=== PATIENT | female | born 1995 | race Caucasian/White ===

== ENCOUNTER → 2023-10-24 13:26 | Outpatient (REF) | payer OTHER, SELFPAY | LOC: PNTC 13:26 | PROVIDERS: ATTENDING PHYSICIAN Obstetrics & Gynecology | DX: Z34.01 Encounter for supervision of normal first pregnancy, first trimester (principal); O36.80X0 Pregnancy with inconclusive fetal viability, not applicable or unspecified; O35.5XX0 Maternal care for (suspected) damage to fetus by drugs, not applicable or unspecified | CPT/HCPCS: 76801 ==

== ENCOUNTER → 2023-11-07 07:27 | Outpatient (REF) | payer OTHER, SELFPAY | LOC: PNTC 07:27 | PROVIDERS: ATTENDING PHYSICIAN Obstetrics & Gynecology | DX: O99.320 Drug use complicating pregnancy, unspecified trimester (principal); O20.8 Other hemorrhage in early pregnancy | CPT/HCPCS: 76801; 76813 ==

== ENCOUNTER → 2023-12-05 10:03 | Outpatient (REF) | payer OTHER, SELFPAY | LOC: PNTC 10:03 | PROVIDERS: ATTENDING PHYSICIAN Obstetrics & Gynecology | DX: Q06.8 Other specified congenital malformations of spinal cord (principal) | CPT/HCPCS: 76805 ==

== ENCOUNTER → 2024-01-02 14:52 | Outpatient (REF) | payer OTHER, SELFPAY | LOC: PNTC 14:52 | PROVIDERS: ATTENDING PHYSICIAN Obstetrics & Gynecology | DX: O99.320 Drug use complicating pregnancy, unspecified trimester (principal); O20.8 Other hemorrhage in early pregnancy | CPT/HCPCS: 76811 ==

== ENCOUNTER 2024-01-15 10:44 | Emergency (ER) | payer OTHER, SELFPAY ==
[2024-01-15 10:57] VITALS: BP 122/85
--- NOTE | 2024-01-15 12:00 | ED.GENMED ---
History of Present Illness
General
Chief Complaint: Cold/Flu/URI Symptoms
Source: patient
Time Seen by Provider: 01/15/24 11:32
History of Present Illness
History of Present Illness:
28-year-old female with past medical history of anxiety and depression, migraines, currently 22 weeks presenting to the emergency department for evaluation of cough and upper respiratory like symptoms that been ongoing for the last 2 days,
initially went to her primary care provider and was given an inhaler to use but states she is not having any relief with this. Tmax of 99.5. Also notes some associated sinus congestion. She did state that during 1 coughing spell she noticed a
small kemal of blood intermixed with the sputum. No known sick contacts, recent travel or recent antibiotics. Patient is denying any pleurisy. Denies any cigarette or tobacco use.
Past History
Past History
ED Past Medical History: Psychiatric and Other (Migraines)
ED Past Surgical History: None
Social History
Tobacco: Non-smoker
Alcohol: None
Drug: None
Personal: Single
Living: with family
Review of Systems
Review of Systems
All Other Systems: ROS reviewed and negative except as documented in HPI and ROS
Phy Exam
Physical Exam
Physical Exam:
GENERAL: Alert , in no apparent distress
EYE: conjunctiva clear
NECK: Supple
ENT: o/p clr, mmm. No tonsillar hypertrophy or exudates, uvula midline, airway patent, no stridor or trismus, TMs clear bilateral
CARDIAC: Borderline tachycardic rate and rhythm, no murmur
LUNGS: Clear breath sounds bilaterally, no acute respiratory distress, no wheezes/rales/rhonchi, Faint dry cough during exam
NEUROLOGICAL: Alert and oriented
SKIN: Warm and dry, skin intact.
MUSCULOSKELETAL: well perfused.
PSYCH: Normal and appropriate interaction.
Scores
Heart Failure Risk
Heart Failure Risk Score: Not Applicable
Heart Score for Chest Pain Patients
STEMI patient?: Not applicable
Withdrawal Assessment of Alcohol
Withdrawal Assessment Completed?: Not applicable
Course
Orders/Labs/Results
Orders:
Orders
01/15/24 11:38
COVID-19 Antigen Urgent
Source: Nasal Swab
INF RAPID [Influenza A+B Rapid Molecular] Urgent
BETHANY Source: Nasal Swab
Specimen Description:
CR Chest - 2 Views Urgent
Comment:
Reason For Exam: cough, low grade fever
Vital Signs
Initial and Last Documented VS:
Initial Vital Signs
Temp Pulse Resp BP Pulse Ox
98.9 F 110 16 122/85 99
01/15/24 10:57 01/15/24 10:57 01/15/24 10:57 01/15/24 10:57 01/15/24 10:57
Last Documented Vital Signs
Temp Pulse Resp BP Pulse Ox
98.9 F 101 14 107/77 96
01/15/24 10:57 01/15/24 13:08 01/15/24 13:08 01/15/24 13:08 01/15/24 13:08
MDM/Problems Addressed
Differential Diagnosis Includes:
COVID, flu, other viral etiology, pneumonia, PE considered given patient's status however given her other URI-like symptoms I feel this is a much less likely diagnosis
MDM/Problems Addressed:
28-year-old female presenting the ER for 2 days of cold and flulike symptoms. PCP gave patient an inhaler but did not do any further testing. Patient noting no relief with the inhaler. She has no wheezing on exam and her lungs are clear.
Discussed risk versus benefit of chest x-ray given patient's and patient is okay with performing the x-ray as long as she is shielded. COVID and flu testing ordered. We also discussed supportive care measures for viral etiologies.
*Radiology
Radiology exam reviewed: radiology read reviewed (Bilateral pneumonia)
*Pulse Oximetry
Patient hypoxic: no
*Railcar Foreman Interpretation
Rate: tachycardiac
Rhythm: sinus
*Critical Care Note
Total Time (30-74mins, 75-104mins- exclusive of procedures): Not Applicable
Patient Management
Escalation/DeEscalation of care consider admission/obs:
Patient's chest x-ray shows bilateral pneumonia. She remains without any evidence for hypoxia. COVID and flu testing negative. Will cover with amoxicillin and Zithromax. Tylenol as needed for fevers and bodyaches. Patient otherwise stable for
discharge home.
ED Attending Note
-
Portions of this chart may have been created with voice recognition software.� Occasional wrong word or��sound alike� substitutions may have occurred due to the inherent limitations of voice recognition software.
Discharge Plan
Departure
Patient Disposition: Home (Routine Discharge)
Date of Disposition: 01/15/24
Time of Disposition: 13:03
Patient with high blood pressure during this ER visit?: No
Discharge Problem:
Pneumonia
Instructions: Pneumonia
Prescriptions:
New
amoxicillin 500 mg tablet
500 mg PO BID 5 Days Qty: 10 0RF
azithromycin [Zithromax] 250 mg tablet
250 mg PO DAILY Qty: 6 0RF
Rx Instructions:
Take 2 tabs PO day 1, Take 1 tab remaining 4 days
Referrals:
Froylan Buckley, DO [Family Provider] -
Interventions
Interventions:
*Risk Screen - Suicide Last Done: 01/15/24 10:57
*General Assessment Last Done: 01/15/24 10:57
*Neglect/Abuse Screening Last Done: 01/15/24 10:57
ED- Fall Risk Assessment Last Done: 01/15/24 11:53
*ED COVID-19 Vaccine History Last Done: 01/15/24 10:57
*Nursing Disposition Last Done: 01/15/24 13:08
ED- Pulmonary Assessment Last Done: 01/15/24 11:53
Discharge Date and Time
Discharge Date/Time: 01/15/24 13:09
Print Language: KITTITIAN
[2024-01-15 12:01] LABS: COVID-19 Antigen Negative (Negative)
[2024-01-15 13:08] VITALS: BP 107/77
== END 2024-01-15 13:09 | disposition home or self-care (01) ==
LOC: EMR 10:44
PROVIDERS: Physician Assistant Medical; EMERGENCY PHYSICIAN Emergency Medicine; FAMILY PHYSICIAN Family Medicine
DX: O99.512 Diseases of the respiratory system complicating pregnancy, second trimester (principal); J18.9 Pneumonia, unspecified organism; Z3A.22 22 weeks gestation of pregnancy
CPT/HCPCS: 99284; 71046; 87502; 87811

== ENCOUNTER 2024-03-07 11:54 | Emergency (ER) | payer OTHER, SELFPAY ==
[2024-03-07 12:02] VITALS: BP 113/76
[2024-03-07 12:19] LABS: % Basophils 0.2 % (0-2); % Eosinophils 0.4 % (0-6); % Immature Granulocytes 2.8 % (0-0.5); % Lymphocytes 18.4 % (20.5-51.1); % Monocytes 4.3 % (1.7-9.3); % Neutrophils 73.9 % (42.2-75.2); Absolute Immature Granulocytes 0.3 10^3/uL (0-0.05); Absolute Lymphocytes 1.7 10^3/uL (1.2-3.4); Absolute Monocytes 0.4 10^3/uL (0.1-0.6); Absolute Neutrophils 6.7 10^3/uL (1.4-6.5); Hematocrit 31.8 % (37.0-47.0); Hemoglobin 10.4 g/dL (12.0-16.0); Mean Corp Hgb Conc. 32.7 g/dL (33.0-37.0); Mean Corpuscular Hgb 26.2 pg (27.0-31.0); Mean Corpuscular Volume 80.1 fL (81.0-99.0); Mean Platelet Volume 9.9 fL (7.4-10.4); Nucleated Red Blood Cells % 0 %; Platelet Count 200 10^3/uL (130-400); Red Blood Cell Count 3.97 10^6/uL (4.20-5.40); Red Cell Dist. Width 13.6 % (11.5-14.5)
[2024-03-07 13:01] LABS: ALT (SGPT) 57 U/L (0-35); AST (SGOT) 51 U/L (14-36); Albumin 3.3 g/dl (3.5-5.0); Alkaline Phosphatase 123 U/L (38-126); Blood Urea Nitrogen 8 mg/dl (7-17); Calcium 8.3 mg/dl (8.4-10.2); Carbon Dioxide 24 mmol/L (22-30); Chloride 103 mmol/L (98-107); Glucose 86 mg/dl (70-99); Lipase 52 U/L (23-300); Potassium 4.5 mmol/L (3.5-5.1); Sodium 135 mmol/L (135-145); Total Bilirubin 0.4 mg/dl (0.2-1.3); Total Protein 6.1 g/dl (6.3-8.2); eGFR > 60.00
--- NOTE | 2024-03-07 15:12 | ED.GENMED ---
History of Present Illness
<Fidelia Boyd PA-C - Last Filed: 03/07/24 21:25>
General
Chief Complaint: Abdominal Symptoms
Source: patient
Exam Limitations: none
Time Seen by Provider: 03/07/24 14:28
Nursing documentation reviewed up to this point in time: agreed with
History of Present Illness
History of Present Illness:
Patient is a 28-year-old G1, P0 at approximately 29 weeks presenting to the emergency department for evaluation of right upper quadrant abdominal pain. Patient reports onset of stabbing right upper quadrant abdominal pain rating down the right side
of her abdomen starting yesterday. Pain is been relatively constant. This morning�patient did picture me nauseous and had 1 episode of vomiting. She then reports she spit up a small amount of blood and had an episode of bright red blood in her
stool. Patient did contact her OFFICE NURSE who recommended evaluation in the emergency department.
Of note�patient has been sick over the past week with influenza. Most of her symptoms have improved. However that she does still have a lingering cough.
Patient denies any chest pain, fevers, anorexia.
has thus far been uncomplicated.
Past History
<Fidelia Boyd PA-C - Last Filed: 03/07/24 21:25>
Past History
ED Past Medical History: Psychiatric and Other (Migraines)
ED Past Surgical History: None
Social History
Tobacco: Non-smoker
Alcohol: None
Drug: None
Personal: Single
Living: with family
Review of Systems
<Fidelia Boyd PA-C - Last Filed: 03/07/24 21:25>
Review of Systems
Allergies reviewed?: Yes
All Other Systems: ROS reviewed and negative except as documented in HPI and ROS
Phy Exam
<Fidelia Boyd PA-C - Last Filed: 03/07/24 21:25>
Physical Exam
Physical Exam:
Vitals: Patient's vital signs are stable. Afebrile
General: Patient is well appearing, no acute distress. Nontoxic appearing
Skin: Warm and dry, no rashes or lesions
Head: Normocephalic, atraumatic
Eyes: Sclera nonicteric. EOMs intact. No nystagmus.
Throat: Protecting airway
Neck: Normal ROM, no cervical spine tenderness, no meningismus
Cardiac: Regular rate and rhythm, no murmurs.
Pulm: Normal respiratory effort, no wheezes, rales, rhonchi heard on exam. O2 saturation 99 on room air.
Abdomen: Gravid. Soft with mild right upper quadrant tenderness. No rebound tenderness or guarding. No tenderness McBurney's point.
Rectal: No visualized external hemorrhoids. No evidence of active bleeding.
Extremities: No evidence of cyanosis or edema. Palpable DP pulses
Neuro: AAOx3. Grossly intact.
Psychiatric: Normal affect.
Course
<Fidelia Boyd PA-C - Last Filed: 03/07/24 21:25>
Orders/Labs/Results
Orders:
Orders
03/07/24 12:10
Complete Blood Count/With Diff Urgent
Comprehensive Metabolic Panel Urgent
Lipase Urgent
03/07/24 15:09
Electrocardiogram (*1) Urgent
Reason for Study: Abdominal Pain
EKG- Treatment ONCE
0.9% Sodium Chloride 1000 ml [Nss] 1,000 ml IV BOLUS
US Abdomen Complete/Upper Urgent
Comment:
Reason For Exam: RUQ pain, +n/+V
03/07/24 15:15
Heart Tones ONCE
03/07/24 16:34
Urinalysis Reflex To Culture Urgent
Date Specimen was Collected: 03/07/24
Time Specimen was Collected: 16:24
Urine Microscopic Reflex Cult Urgent
Urine Culture Urgent
BETHANY Source: U
Specimen Description:
Date Specimen was Collected: 03/07/24
Time Specimen was Collected: 16:24
Abnormal Lab Results
03/07/24 03/07/24
12:10 16:34
RBC 3.97 L 10^6/uL
(4.20-5.40)
Hgb 10.4 L g/dL
(12.0-16.0)
Hct 31.8 L %
(37.0-47.0)
MCV 80.1 L fL
(81.0-99.0)
MCH 26.2 L pg
(27.0-31.0)
MCHC 32.7 L g/dL
(33.0-37.0)
Abs Immat Gran (auto) 0.3 H 10^3/uL
(0-0.05)
Absolute Neuts (auto) 6.7 H 10^3/uL
(1.4-6.5)
Immature Gran % 2.8 H %
(0-0.5)
Lymphocytes % 18.4 L %
(20.5-51.1)
Creatinine 0.5 L mg/dL
(0.6-1.0)
Calcium 8.3 L mg/dl
(8.4-10.2)
AST 51 H U/L
(14-36)
ALT 57 H U/L
(0-35)
Total Protein 6.1 L g/dl
(6.3-8.2)
Albumin 3.3 L g/dl
(3.5-5.0)
Urine Ketones 1+ A
(Negative)
Leukocyte Esterase Rfl 1+ A
(Negative)
Urine WBC (Reflex) 11-15 A /HPF
(0-5)
Urine Bacteria (Reflex) Few A
(Negative)
03/07/24 12:10
03/07/24 12:10
Vital Signs
Initial and Last Documented VS:
Initial Vital Signs
Temp Pulse Resp BP Pulse Ox
98.5 F 85 18 113/76 99
03/07/24 12:02 03/07/24 12:02 03/07/24 12:02 03/07/24 12:02 03/07/24 12:02
Last Documented Vital Signs
Temp Pulse Resp BP Pulse Ox
98.5 F 98 18 110/67 96
03/07/24 12:02 03/07/24 19:43 03/07/24 19:45 03/07/24 19:43 03/07/24 19:43
<Olive Navarro MD - Last Filed: 03/07/24 16:03>
Orders/Labs/Results
Orders:
Orders
03/07/24 12:10
Complete Blood Count/With Diff Urgent
Comprehensive Metabolic Panel Urgent
Lipase Urgent
03/07/24 15:09
Electrocardiogram (*1) Urgent
Reason for Study: Abdominal Pain
EKG- Treatment ONCE
0.9% Sodium Chloride 1000 ml [Nss] 1,000 ml IV BOLUS
US Abdomen Complete/Upper Urgent
Comment:
Reason For Exam: RUQ pain, +n/+V
03/07/24 15:15
Heart Tones ONCE
03/07/24 16:34
Urinalysis Reflex To Culture Urgent
Date Specimen was Collected: 03/07/24
Time Specimen was Collected: 16:24
Urine Microscopic Reflex Cult Urgent
Urine Culture Urgent
BETHANY Source: U
Specimen Description:
Date Specimen was Collected: 03/07/24
Time Specimen was Collected: 16:24
Abnormal Lab Results
03/07/24 03/07/24
12:10 16:34
RBC 3.97 L 10^6/uL
(4.20-5.40)
Hgb 10.4 L g/dL
(12.0-16.0)
Hct 31.8 L %
(37.0-47.0)
MCV 80.1 L fL
(81.0-99.0)
MCH 26.2 L pg
(27.0-31.0)
MCHC 32.7 L g/dL
(33.0-37.0)
Abs Immat Gran (auto) 0.3 H 10^3/uL
(0-0.05)
Absolute Neuts (auto) 6.7 H 10^3/uL
(1.4-6.5)
Immature Gran % 2.8 H %
(0-0.5)
Lymphocytes % 18.4 L %
(20.5-51.1)
Creatinine 0.5 L mg/dL
(0.6-1.0)
Calcium 8.3 L mg/dl
(8.4-10.2)
AST 51 H U/L
(14-36)
ALT 57 H U/L
(0-35)
Total Protein 6.1 L g/dl
(6.3-8.2)
Albumin 3.3 L g/dl
(3.5-5.0)
Urine Ketones 1+ A
(Negative)
Leukocyte Esterase Rfl 1+ A
(Negative)
Urine WBC (Reflex) 11-15 A /HPF
(0-5)
Urine Bacteria (Reflex) Few A
(Negative)
03/07/24 12:10
03/07/24 12:10
Vital Signs
Initial and Last Documented VS:
Initial Vital Signs
Temp Pulse Resp BP Pulse Ox
98.5 F 85 18 113/76 99
03/07/24 12:02 03/07/24 12:02 03/07/24 12:02 03/07/24 12:02 03/07/24 12:02
Last Documented Vital Signs
Temp Pulse Resp BP Pulse Ox
98.5 F 98 18 110/67 96
03/07/24 12:02 03/07/24 19:43 03/07/24 19:45 03/07/24 19:43 03/07/24 19:43
<Fidelia Boyd PA-C - Last Filed: 03/07/24 21:25>
MDM/Problems Addressed
Differential Diagnosis Includes:
Elevated to: Cholelithiasis, cholecystitis, viral illness, etc
MDM/Problems Addressed:
28-year-old female G1, P0 approximately 29 weeks presenting with right upper quadrant abdominal pain after recent influenza. No chest pain or shortness of breath. No vaginal bleeding or loss of fluids. No lower abdominal cramping or anorexia.
Sent by OFFICE NURSE for evaluation. Patient arrives with stable vital signs, she is afebrile. Physical exam as above. Patient overall well-appearing, nontoxic. Very low suspicion for appendicitis given patient is afebrile with no history of anorexia,
no leukocytosis, no point tenderness of right lower quadrant. Labs initiated in triage with mild anemia. Mild elevation in AST and ALT. Given right upper quadrant abdominal pain with mild elevation LFTs�will obtain abdominal ultrasound. Will
check urinalysis. Will discuss with OFFICE NURSE.
Update: Urine appears contaminated with 11-15 WBCs, 1+ leukocyte esterase. No proteinuria. This was discussed with OFFICE NURSE on-call, Dr. Bustillo who recommends against treating at this time given patient is asymptomatic. Plan to hold antibiotics
pending urine culture. Ultrasound reviewed without any acute findings. A polyp was noted on the gallbladder for which patient was made aware of. heart tones obtained by RN document at 170 bpm. NST performed at bedside without any acute
abnormalities. Dr. Watters comfortable with discharge with close OFFICE NURSE follow-up and repeat LFTs in a week. Patient otherwise well-appearing and comfortable with outpatient follow-up. Close return precautions discussed.
Chronic conditions affecting care:
N/A
Acute Exacerbation and/or Progression of Chronic Illness:
N/A
<Fidelia Boyd PA-C - Last Filed: 03/07/24 21:25>
*Radiology
Radiology exam reviewed: radiology read reviewed
*Pulse Oximetry
Patient hypoxic: no
*EKG
Interpreted by ED Provider?: Yes
EKG Intrepretation Date: 03/07/24
Interpretation: normal
Comparison EKG: no comparison EKG present
Heart Rate: 86
Rate: normal
Rhythm: sinus
[place]: normal axis
Interval: normal QT interval
QRS Pattern: normal QRS
Ischemia: non-specific ST changes
*Band Director Interpretation
Rate: Band Director- N/A
*Critical Care Note
Total Time (30-74mins, 75-104mins- exclusive of procedures): Not Applicable
<Fidelia Boyd PA-C - Last Filed: 03/07/24 21:25>
Patient Management
Discussion with other providers: Mechanical Product Engineer (OBGYN - Dr. Watters)
Escalation/DeEscalation of care consider admission/obs:
Discharge with close OBGYN f/u out-patient
ED Attending Note
<Fidelia Boyd PA-C - Last Filed: 03/07/24 21:25>
-
Portions of this chart may have been created with voice recognition software.� Occasional wrong word or��sound alike� substitutions may have occurred due to the inherent limitations of voice recognition software.
<Olive Navarro MD - Last Filed: 03/07/24 16:03>
ED Attending Note
Patient seen and examined by attending physician: Yes
I performed the substantive portion of visit, reviewed & personally made and approve the management plan that is documented in note by myself or MARY ALICE.: Yes
ED Attending Note:
28-year-old female presents emergency department, 29 weeks gestation, with recent diagnosis of the flu characterized by cough, congestion, fatigue, etc. Yesterday she noted the gradual onset of intermittent stabbing discomfort in the right upper
quadrant that is now constant. She did have an episode of vomiting this morning where there was a small amount of blood. She then had a episode of loose stool and she saw some bright red blood without clots. It was a small amount. Patient denies
chest pain, fevers, anorexia. She denies dyspnea. She ate this am. On exam, patient overall well-appearing, gravid, occasional cough, no respiratory distress. Lungs CTA, no tenderness to palpation of chest wall. She has minimal tenderness to
palpation of the right upper quadrant, no right lower quadrant right mid quadrant tenderness, no uterine tenderness. Workup in progress, very low suspicion for appendicitis given lack of fever, anorexia, etc.
Discharge Plan
Departure
Patient Disposition: Home (Routine Discharge)
Date of Disposition: 03/07/24
Time of Disposition: 19:50
Patient with high blood pressure during this ER visit?: No
Covid-19: Not Applicable
Discharge Problem:
Right upper quadrant abdominal pain
Instructions: Abdominal Pain
Prescriptions:
No Action
amoxicillin 500 mg tablet
500 mg PO BID 5 Days Qty: 10 0RF
azithromycin [Zithromax] 250 mg tablet
250 mg PO DAILY Qty: 6 0RF
Rx Instructions:
Take 2 tabs PO day 1, Take 1 tab remaining 4 days
Referrals:
Froylan Buckley, DO [Family Provider] -
Parris Watters DO [Active] - Follow up in 1 week
Activity Restrictions/Additional Instructions:
RETURN TO THE EMERGENCY DEPARTMENT WITH ANY FEVERS, WORSENING/PERSISTENT ABDOMINAL PAIN, PERSISTENT NAUSEA/VOMITING, VAGINAL BLEEDING/LOSS OF FLUID, WORSENING IN CURRENT SYMPTOMS OR ANY OTHER CONCERNS
-As discussed�your abdominal ultrasound did show a small polyp on your gallbladder. You should have this followed up with your primary care as needed.
-Your LFTs were mildly elevated today in the emergency department. You will need to have these rechecked in about 1 week with your OFFICE NURSE/PCP to ensure that they are trending down.
-Your urine was sent for culture. If it is found to be positive�we will contact you to initiate antibiotics.
-It is important stay well-hydrated and get plenty of rest.
-Follow-up with your OFFICE NURSE as scheduled for further evaluation/management and care
Monitor your symptoms closely and return to the emergency department w/ any acute worsening/new symptoms or any other concerns
Interventions
Interventions:
*Risk Screen - Suicide Last Done: 03/07/24 12:02
*General Assessment Last Done: 03/07/24 12:02
*Neglect/Abuse Screening Last Done: 03/07/24 12:02
ED- Fall Risk Assessment Last Done: 03/07/24 20:07
*ED COVID-19 Vaccine History Last Done: 03/07/24 12:02
*Nursing Disposition Last Done: 03/07/24 20:07
WK-Vfcdeq-Lsvyxumigx Assessment Last Done: 03/07/24 15:26
Discharge Date and Time
Discharge Date/Time: 03/07/24 20:00
Print Language: LITHUANIAN
[2024-03-07] MEDS: NSS 1000 IV (15:27)
[2024-03-07 16:46] LABS: Urine Albumin Trace (Neg - Trace); Urine Bilirubin Negative (Negative); Urine Character Clear (Clear); Urine Color Yellow; Urine Glucose Negative (Negative); Urine Ketone 1+ (Negative); Urine Leukocyte 1+ (Negative); Urine Nitrite Negative (Negative); Urine Occult Blood Negative (Negative); Urine Urobilinogen Negative (Neg - 1+)
[2024-03-07 17:21] LABS: Urine Squamous Cell >30 /LPF (Few)
[2024-03-07 17:22] LABS: Urine Bacteria Few (Negative); Urine Red Blood Cell 0-2 /HPF (0-2)
[2024-03-07 19:43] VITALS: BP 110/67
== END 2024-03-07 20:00 | disposition home or self-care (01) ==
LOC: EMR 11:54
PROVIDERS: Physician Assistant; Student in an Organized Health Care Education/Training Program; EMERGENCY PHYSICIAN Emergency Medicine; FAMILY PHYSICIAN Family Medicine
DX: O26.893 Other specified pregnancy related conditions, third trimester (principal); R10.11 Right upper quadrant pain; O99.013 Anemia complicating pregnancy, third trimester; Z3A.29 29 weeks gestation of pregnancy
CPT/HCPCS: 96360; 99284; 76700; 80053; 81003; 81015; 83690; 85025; 87086; 93005

== ENCOUNTER 2024-03-17 15:33 | Observation (INO) | payer OTHER, SELFPAY ==
[2024-03-17 15:46] VITALS: BP 125/78; BMI 25.6
[2024-03-17 16:11] LABS: % Basophils 0.5 % (0-2); % Eosinophils 1.4 % (0-6); % Immature Granulocytes 1.4 % (0-0.5); % Lymphocytes 23.1 % (20.5-51.1); % Monocytes 7.1 % (1.7-9.3); % Neutrophils 66.5 % (42.2-75.2); Absolute Eosinophils 0.1 10^3/uL (0-0.7); Absolute Immature Granulocytes 0.1 10^3/uL (0-0.05); Absolute Lymphocytes 1.9 10^3/uL (1.2-3.4); Absolute Monocytes 0.6 10^3/uL (0.1-0.6); Absolute Neutrophils 5.5 10^3/uL (1.4-6.5); Hematocrit 31.4 % (37.0-47.0); Mean Corp Hgb Conc. 31.8 g/dL (33.0-37.0); Mean Corpuscular Hgb 25.4 pg (27.0-31.0); Mean Corpuscular Volume 79.7 fL (81.0-99.0); Mean Platelet Volume 10.6 fL (7.4-10.4); Nucleated Red Blood Cells % 0 %; Platelet Count 218 10^3/uL (130-400); Red Blood Cell Count 3.94 10^6/uL (4.20-5.40); Red Cell Dist. Width 13.6 % (11.5-14.5); White Blood Cell Count 8.3 10^3/uL (4.8-10.8)
[2024-03-17 16:25] LABS: ALT (SGPT) 29 U/L (0-35); AST (SGOT) 29 U/L (14-36); Albumin 3.5 g/dl (3.5-5.0); Alkaline Phosphatase 122 U/L (38-126); Blood Urea Nitrogen 8 mg/dl (7-17); Calcium 8.6 mg/dl (8.4-10.2); Carbon Dioxide 25 mmol/L (22-30); Chloride 104 mmol/L (98-107); Estimated Creatinine Clearance 109 ml/min; Glucose 88 mg/dl (70-99); Sodium 135 mmol/L (135-145); Total Bilirubin 0.1 mg/dl (0.2-1.3); Total Protein 6.3 g/dl (6.3-8.2); eGFR > 60.00
[2024-03-17 16:46] LABS: Urine Albumin Negative (Neg - Trace); Urine Bilirubin 1+ (Negative); Urine Character Clear (Clear); Urine Color Yellow; Urine Glucose Negative (Negative); Urine Ketone Negative (Negative); Urine Leukocyte 1+ (Negative); Urine Nitrite Negative (Negative); Urine Occult Blood Negative (Negative); Urine Urobilinogen Negative (Neg - 1+)
[2024-03-17 16:55] LABS: Urine Mucus Many
[2024-03-17 16:56] LABS: Urine Bacteria Many (Negative); Urine Red Blood Cell 0-2 /HPF (0-2)
[2024-03-17 17:10] LABS: Urine Protein < 5 mg/dl
== END 2024-03-17 19:00 | disposition home or self-care (01) ==
LOC: PNTC-IN 15:33
PROVIDERS: ADMITTING PHYSICIAN Student in an Organized Health Care Education/Training Program; ATTENDING PHYSICIAN Obstetrics & Gynecology
DX: O26.613 Liver and biliary tract disorders in pregnancy, third trimester (principal); L29.81 Cholestatic pruritus; O26.643 Intrahepatic cholestasis of pregnancy, third trimester; K83.1 Obstruction of bile duct; O26.893 Other specified pregnancy related conditions, third trimester; Z3A.31 31 weeks gestation of pregnancy; R74.01 Elevation of levels of liver transaminase levels; Z88.8 Allergy status to other drugs, medicaments and biological substances
CPT/HCPCS: 59025; 80053; 81003; 81015; 82239; 82570; 84156; 85025; G0378

== ENCOUNTER → 2024-03-24 15:53 | Outpatient (REF) | payer OTHER, SELFPAY | LOC: PNTC 15:53 | PROVIDERS: ATTENDING PHYSICIAN Obstetrics & Gynecology | DX: O26.649 Intrahepatic cholestasis of pregnancy, unspecified trimester (principal) | CPT/HCPCS: 59025; 76815 ==

== ENCOUNTER → 2024-04-02 15:30 | Outpatient (REF) | payer OTHER, SELFPAY | LOC: PNTC 15:30 | PROVIDERS: ATTENDING PHYSICIAN Obstetrics & Gynecology | DX: O26.649 Intrahepatic cholestasis of pregnancy, unspecified trimester (principal); O26.619 Liver and biliary tract disorders in pregnancy, unspecified trimester | CPT/HCPCS: 59025 ==

== ENCOUNTER → 2024-04-09 15:13 | Outpatient (REF) | payer OTHER, SELFPAY | LOC: PNTC 15:13 | PROVIDERS: ATTENDING PHYSICIAN Obstetrics & Gynecology | DX: O26.619 Liver and biliary tract disorders in pregnancy, unspecified trimester (principal) | CPT/HCPCS: 59025; 76815 ==

== ENCOUNTER 2024-04-09 16:35 | Emergency (ER) | payer OTHER, SELFPAY ==
[2024-04-09 16:41] VITALS: BP 118/82
[2024-04-09 17:15] VITALS: BMI 28.4
--- NOTE | 2024-04-09 17:43 | ED.GENMED ---
History of Present Illness
General
Chief Complaint: DVT/Possible Blood Clot
Source: patient
Exam Limitations: none
Time Seen by Provider: 04/09/24 17:05
History of Present Illness
History of Present Illness:
28yo female currently 35 weeks presenting for evaluation of right ankle swelling. Symptoms have been intermittent for the past several weeks. She had a long shift at work 3 days ago and the swelling has been worsening since then.
The swelling and discomfort is localized around the right ankle. She denies any trauma. She was seen by her sagger soak today and was told to go to the ED to rule out a DVT. Patient has no other complaints at this time and denies any shortness
of breath, chest pain, headache, visual changes, abdominal pain, vaginal bleeding, LOF.
Past History
Past History
ED Past Medical History: Psychiatric and Other (Migraines)
ED Past Surgical History: None
Social History
Tobacco: Non-smoker
Alcohol: None
Drug: None
Personal: Single
Living: with family
Phy Exam
General Physical Exam
General Presentation: well appearing and no apparent distress
General age: appears stated age
General Skin: warm and dry
General Habitus: normal
General Mental: alert
ENT Exam
ENT Exam: normocephalic
Cardiovascular Exam
Cardiovascular Exam: regular rate/rhythm and no murmur
Pulmonary Exam
Pulmonary Exam: lungs clear, no respiratory distress, no rales, no crackles and no rhonchi
Gastrointestinal Exam
Gastrointestinal Exam: other (Gravid abdomen)
Neurological Exam
Neurological Exam: alert
[place] Coma Scale
Eye Opening: Spontaneous
Verbal Response: Oriented
Motor Response: Obeys Commands
GCS Total Score: 15
Musculoskeletal Exam
Musculoskeletal Exam: other (Localized edema to the R ankle noted without skin changes. No tenderness in calf. ROM of ankle normal. 2+ DP pulse.)
Skin Exam
Skin Exam: normal color and warm/dry
Psychiatric Exam
Psychiatric Exam: normal mood/affect
Course
Orders/Labs/Results
Orders:
Orders
04/09/24 16:37
US Legs, Right [US Periph Venous LOWER Ext RT] Urgent
Comment:
Reason For Exam: pain and swelling
Vital Signs
Initial and Last Documented VS:
Initial Vital Signs
Temp Pulse Resp BP Pulse Ox
98.5 F 77 18 118/82 98
04/09/24 16:41 04/09/24 16:41 04/09/24 16:41 04/09/24 16:41 04/09/24 16:41
Last Documented Vital Signs
Temp Pulse Resp BP Pulse Ox
98.5 F 77 18 118/82 98
04/09/24 16:41 04/09/24 16:41 04/09/24 16:41 04/09/24 16:41 04/09/24 16:41
MDM/Problems Addressed
Differential Diagnosis Includes:
28yoF here with R ankle swelling. Currently 34 weeks . Sent in by OBGYN to r/o DVT. Denies CP/SOB. No complaints including no abdominal pain or vaginal bleeding. Blood pressure and remainder of vitals are normal. There is localized
edema to the ankle noted. RLE is neurovascularly intact. Differential diagnosis includes: DVT vs. dependent edema
Venous duplex obtained which is negative for DVT. Patient stable for discharge. Advised elevation and compression stockings. She was instructed to f/u with her OBGYN and ED return precautions discussed.
*Critical Care Note
Total Time (30-74mins, 75-104mins- exclusive of procedures): Not Applicable
ED Attending Note
-
Portions of this chart may have been created with voice recognition software.� Occasional wrong word or��sound alike� substitutions may have occurred due to the inherent limitations of voice recognition software.
Discharge Plan
Departure
Patient Disposition: Home (Routine Discharge)
Date of Disposition: 04/09/24
Time of Disposition: 17:45
Patient with high blood pressure during this ER visit?: No
Discharge Problem:
Localized swelling of right lower leg
Prescriptions:
No Action
sertraline 100 mg Tablet
125 mg PO DAILY
prenat.vits,darnell,bqk-tjqi-jwmbl Tablet
1 tab PO DAILY
Referrals:
Froylan Buckley, [Family Provider] -
Activity Restrictions/Additional Instructions:
Your ultrasound was negative for a DVT. Elevate your leg and wear compression stockings to help with swelling.
Please follow-up with your OBGYN. Return to the ER with any new or worsening symptoms.
Interventions
Interventions:
*Risk Screen - Suicide Last Done: 04/09/24 16:41
*General Assessment Last Done: 04/09/24 16:41
*Neglect/Abuse Screening Last Done: 04/09/24 16:41
ED- Fall Risk Assessment Last Done: 04/09/24 17:15
*ED COVID-19 Vaccine History Last Done: 04/09/24 16:41
*Nursing Disposition Last Done: 04/09/24 17:52
ED- Cardiac Assessment Last Done: 04/09/24 17:15
ED- Pulmonary Assessment Last Done: 04/09/24 17:15
ED-Peripheral Vascular Assessment Last Done: 04/09/24 17:41
ED-Skin Assessment Last Done: 04/09/24 17:15
Discharge Date and Time
Discharge Date/Time: 04/09/24 17:52
Print Language: WOLOF
== END 2024-04-09 17:52 | disposition home or self-care (01) ==
LOC: EMR 16:35
PROVIDERS: EMERGENCY PHYSICIAN Student in an Organized Health Care Education/Training Program; FAMILY PHYSICIAN Family Medicine
DX: O12.03 Gestational edema, third trimester (principal); Z3A.35 35 weeks gestation of pregnancy
CPT/HCPCS: 99284; 59025; 93971

== ENCOUNTER → 2024-04-16 16:56 | Outpatient (REF) | payer OTHER, SELFPAY | LOC: PNTC 16:56 | PROVIDERS: ATTENDING PHYSICIAN Obstetrics & Gynecology | DX: O26.649 Intrahepatic cholestasis of pregnancy, unspecified trimester (principal) | CPT/HCPCS: 59025 ==

== ENCOUNTER → 2024-04-23 16:55 | Outpatient (REF) | payer OTHER, SELFPAY | LOC: PNTC 16:55 | PROVIDERS: ATTENDING PHYSICIAN Obstetrics & Gynecology | DX: O26.649 Intrahepatic cholestasis of pregnancy, unspecified trimester (principal) | CPT/HCPCS: 59025 ==

== ENCOUNTER 2024-04-27 19:45 | Inpatient (IN) | payer OTHER, SELFPAY ==
[2024-04-27 19:48] VITALS: BP 133/88; BMI 27.3
[2024-04-27] MEDS: CYTOTEC 25 MICROGRAM VAG (20:30)
[2024-04-27 20:48] LABS: % Basophils 0.5 % (0-2); % Eosinophils 1.7 % (0-6); % Immature Granulocytes 1.6 % (0-0.5); % Lymphocytes 23.6 % (20.5-51.1); % Monocytes 6.9 % (1.7-9.3); % Neutrophils 65.7 % (42.2-75.2); Absolute Basophils 0.1 10^3/uL (0-0.2); Absolute Eosinophils 0.2 10^3/uL (0-0.7); Absolute Immature Granulocytes 0.2 10^3/uL (0-0.05); Absolute Lymphocytes 2.2 10^3/uL (1.2-3.4); Absolute Monocytes 0.7 10^3/uL (0.1-0.6); Absolute Neutrophils 6.2 10^3/uL (1.4-6.5); Hematocrit 33.4 % (37.0-47.0); Hemoglobin 10.5 g/dL (12.0-16.0); Mean Corp Hgb Conc. 31.4 g/dL (33.0-37.0); Mean Corpuscular Hgb 24.7 pg (27.0-31.0); Mean Corpuscular Volume 78.6 fL (81.0-99.0); Nucleated Red Blood Cells % 0 %; Platelet Count 185 10^3/uL (130-400); Red Blood Cell Count 4.25 10^6/uL (4.20-5.40); Red Cell Dist. Width 16.3 % (11.5-14.5); White Blood Cell Count 9.5 10^3/uL (4.8-10.8)
[2024-04-27] MEDS: ACTIGALL 300 MG PO (20:50)
[2024-04-27] MEDS: ZOLOFT 125 MG PO (20:50)
[2024-04-27 20:53] LABS: ALT (SGPT) 28 U/L (0-35); AST (SGOT) 33 U/L (14-36); Albumin 3.6 g/dl (3.5-5.0); Alkaline Phosphatase 159 U/L (38-126); Blood Urea Nitrogen 13 mg/dl (7-17); Calcium 9.3 mg/dl (8.4-10.2); Carbon Dioxide 22 mmol/L (22-30); Chloride 102 mmol/L (98-107); Estimated Creatinine Clearance 107 ml/min; Glucose 82 mg/dl (70-99); Potassium 4.4 mmol/L (3.5-5.1); Sodium 133 mmol/L (135-145); Total Bilirubin 0.5 mg/dl (0.2-1.3); Total Protein 6.3 g/dl (6.3-8.2); eGFR > 60.00
[2024-04-27] MEDS: TUMS CHEWABLE TABLET 400 MG PO (22:40)
[2024-04-28] MEDS: CYTOTEC 50 MICROGRAM PO (00:34)
[2024-04-28] MEDS: LR 1000 IV ×4 (00:35→22:46)
[2024-04-28] MEDS: CYTOTEC PO ×2 (04:46→09:24)
[2024-04-28] MEDS: ACTIGALL 300 MG PO ×2 (07:08→20:18)
[2024-04-28] MEDS: PITOCIN 30 UNITS/NSS 500 ML IV (09:49)
[2024-04-28] MEDS: TUMS CHEWABLE TABLET 400 MG PO (20:18)
[2024-04-28] MEDS: STADOL 1 MG IV (20:39)
[2024-04-28] MEDS: ZOLOFT PO (20:39)
[2024-04-28] MEDS: SUBLIMAZE 100 MCG EPIDURAL (22:10)
[2024-04-28] MEDS: FENTANYL/BUPIVACAINE 100 EPIDURAL (22:10)
[2024-04-29] MEDS: BICITRA 30 ML PO (02:50)
[2024-04-29] MEDS: TYLENOL 1000 MG PO (02:50)
[2024-04-29] MEDS: ANCEF 10 IV (02:51)
[2024-04-29 03:27] LABS: B.E. Cord ABG -2.3 mMOL/L; Cord ABG Comment CORD BLOOD; HCO3 Cord ABG 25.7 mmol/L; O2 Saturation % Cord ABG 23.1 %; PCO2 Cord ABG 56 mmHg; PO2 Cord ABG 14 mmHg; pH Cord ABG 7.27
[2024-04-29 03:34] LABS: B.E. Cord ABG -4.9 mMOL/L; HCO3 Cord ABG 24.4 mmol/L; O2 Saturation % Cord ABG 28.9 %; PCO2 Cord ABG 61 mmHg; PO2 Cord ABG 15 mmHg; pH Cord ABG 7.21
[2024-04-29] MEDS: FEOSOL 325 MG PO (09:32)
[2024-04-29] MEDS: PRENATAL PLUS 1 TABLET PO ×2 (09:32)
[2024-04-29] MEDS: TORADOL 15 MG IV ×3 (10:15→22:03)
[2024-04-29] MEDS: ZOLOFT 125 MG PO (19:42)
[2024-04-30] MEDS: TORADOL 15 MG IV (04:15)
[2024-04-30 05:02] LABS: Hemoglobin 9.1 g/dL (12.0-16.0); Mean Corp Hgb Conc. 31.4 g/dL (33.0-37.0); Mean Corpuscular Hgb 25.1 pg (27.0-31.0); Mean Corpuscular Volume 80.1 fL (81.0-99.0); Mean Platelet Volume 11.3 fL (7.4-10.4); Platelet Count 147 10^3/uL (130-400); Red Blood Cell Count 3.62 10^6/uL (4.20-5.40); Red Cell Dist. Width 16.5 % (11.5-14.5)
--- NOTE | 2024-04-30 07:26 | W.PN.ANS.POP ---
Anesthesia Post Operative
- Anesthesia Post Op Note
Vital Signs Stable-See Nursing Note: Yes
Airway Patent: Yes
Adequate Pain Control: Yes
Change in Mental Status: No
Current Postoperative Nausea & Vomiting: No
Anesthesia Complications: No
General Anesthetic Recall: No
Unplanned Admission: No
Post Op Hydration Adequate: Yes
[2024-04-30] MEDS: FEOSOL 325 MG PO (08:10)
[2024-04-30] MEDS: PRENATAL PLUS 1 TABLET PO (08:10)
[2024-04-30] MEDS: TYLENOL 650 MG PO ×2 (11:06→17:08)
[2024-04-30] MEDS: SENOKOT-S 1 TABLET PO (11:06)
[2024-04-30] MEDS: MOTRIN 600 MG PO ×2 (11:07→17:08)
[2024-04-30] MEDS: MAXALT MLT (ORALLY DISINTEGRATING) 10 MG PO (11:32)
[2024-04-30 12:13] LABS: ALT (SGPT) 49 U/L (0-35); AST (SGOT) 105 U/L (14-36); Albumin 2.5 g/dl (3.5-5.0); Alkaline Phosphatase 130 U/L (38-126); Blood Urea Nitrogen 11 mg/dl (7-17); Calcium 8.2 mg/dl (8.4-10.2); Carbon Dioxide 25 mmol/L (22-30); Chloride 106 mmol/L (98-107); Estimated Creatinine Clearance 107 ml/min; Glucose 88 mg/dl (70-99); Sodium 133 mmol/L (135-145); Total Bilirubin 0.2 mg/dl (0.2-1.3); Total Protein 4.9 g/dl (6.3-8.2); eGFR > 60.00
--- NOTE | 2024-04-30 15:24 | CM ---
Met with new parents Sandy and Josr
Confirmed listed address/phone
Parents report they have named their Marcus Suarez
Mom reports has support from significant other Josr and family
Parents reports they have supplies including crib and car seat
Mom plans to breast feed - given order form for breast pump. Aware she can call rep to discuss options regarding her needs
Peds - [facility] in [facility]
Mom to f/u with [facility]
CM remains available to family
Plan - anticipate home no needs
[2024-04-30 17:53] LABS: ALT (SGPT) 51 U/L (0-35); AST (SGOT) 102 U/L (14-36); Albumin 2.9 g/dl (3.5-5.0); Alkaline Phosphatase 133 U/L (38-126); Blood Urea Nitrogen 12 mg/dl (7-17); Calcium 8.3 mg/dl (8.4-10.2); Carbon Dioxide 24 mmol/L (22-30); Chloride 108 mmol/L (98-107); Estimated Creatinine Clearance 107 ml/min; Glucose 101 mg/dl (70-99); Potassium 4.1 mmol/L (3.5-5.1); Sodium 137 mmol/L (135-145); Total Bilirubin 0.5 mg/dl (0.2-1.3); Total Protein 5.5 g/dl (6.3-8.2); eGFR > 60.00
[2024-04-30 18:07] LABS: Hematocrit 30.6 % (37.0-47.0); Hemoglobin 9.6 g/dL (12.0-16.0); Mean Corp Hgb Conc. 31.4 g/dL (33.0-37.0); Mean Corpuscular Hgb 25.3 pg (27.0-31.0); Mean Corpuscular Volume 80.5 fL (81.0-99.0); Mean Platelet Volume 11.4 fL (7.4-10.4); Platelet Count 186 10^3/uL (130-400); Red Cell Dist. Width 16.6 % (11.5-14.5); White Blood Cell Count 15.1 10^3/uL (4.8-10.8)
[2024-04-30] MEDS: ZOLOFT 125 MG PO (20:05)
[2024-05-01] MEDS: MOTRIN 600 MG PO ×4 (00:11→19:22)
[2024-05-01] MEDS: TYLENOL 650 MG PO ×4 (00:11→19:21)
[2024-05-01 06:31] LABS: Hematocrit 27.2 % (37.0-47.0); Hemoglobin 8.4 g/dL (12.0-16.0); Mean Corp Hgb Conc. 30.9 g/dL (33.0-37.0); Mean Corpuscular Hgb 24.9 pg (27.0-31.0); Mean Corpuscular Volume 80.7 fL (81.0-99.0); Platelet Count 165 10^3/uL (130-400); Red Blood Cell Count 3.37 10^6/uL (4.20-5.40); Red Cell Dist. Width 16.7 % (11.5-14.5); White Blood Cell Count 10.6 10^3/uL (4.8-10.8)
[2024-05-01 08:14] LABS: ALT (SGPT) 42 U/L (0-35); AST (SGOT) 64 U/L (14-36); Albumin 2.4 g/dl (3.5-5.0); Alkaline Phosphatase 122 U/L (38-126); Blood Urea Nitrogen 8 mg/dl (7-17); Calcium 7.6 mg/dl (8.4-10.2); Carbon Dioxide 26 mmol/L (22-30); Chloride 109 mmol/L (98-107); Estimated Creatinine Clearance 125 ml/min; Glucose 96 mg/dl (70-99); Potassium 3.8 mmol/L (3.5-5.1); Sodium 137 mmol/L (135-145); Total Bilirubin 0.2 mg/dl (0.2-1.3); Total Protein 4.7 g/dl (6.3-8.2); eGFR > 60.00
[2024-05-01] MEDS: FEOSOL 325 MG PO (08:23)
[2024-05-01] MEDS: PRENATAL PLUS 1 TABLET PO (08:23)
[2024-05-01] MEDS: SENOKOT-S 1 TABLET PO (08:23)
[2024-05-01] MEDS: ZOLOFT 125 MG PO (20:45)
[2024-05-02] MEDS: TYLENOL 650 MG PO ×2 (03:37→10:35)
[2024-05-02] MEDS: MOTRIN 600 MG PO ×2 (03:37→10:36)
[2024-05-02] MEDS: PRENATAL PLUS 1 TABLET PO (07:34)
[2024-05-02] MEDS: FEOSOL 325 MG PO (07:35)
--- NOTE | 2024-05-02 08:59 | CM ---
Addendum entered by Savanah Gasca 05/02/24 09:56:
Patient and Baby father given resources, and career placement specialist with patient. CM updated nursing. CM will continue to follow for discharge planning needs.
Plan; home with follow up with machine shop specialist.
Original Note:
CM received call from [facility] that patient depression score was 13. CM attempted to visit. Patient with physician. Per nursing patient for discharge today pending baby kathy luque score today. CM will return to offer resources.
[2024-05-02] MEDS: SENOKOT-S 1 TABLET PO (10:36)
--- NOTE | 2024-05-02 11:20 | W.DS.TRANS ---
DC Summary - Registered Appraiser
-
Discharge Instructions:
Discharge Diagnosis/Procedures delivered via section,
cholestasis
Diet No restrictions
Activity No strenuous activity
Driving Restrictions No driving for 2 weeks
Bathing Restrictions OK to Shower
Instructions:
Stand-Alone Forms: [facility] Hypertensive Disorders
Changes to Home Medications: No
Discharge Medications:
DC Medications w/original date entered in [facility]
prenat.vits,darnell,[id number]-[id number] 1 tab PO DAILY 03/17/24
sertraline 100 mg tablet 125 mg PO DAILY 03/17/24
acetaminophen 325 mg tablet 650 mg (2 x 325 mg) PO Q4HPRN PRN mild pain #1 tab 05/02/24
ferrous sulfate 325 mg (65 mg iron) tablet (FeroSul) 325 mg PO DAILY #1 tab 05/02/24
ibuprofen 600 mg tablet 600 mg PO Q6HPRN PRN cramps #60 tabs 05/02/24
oxycodone-acetaminophen 5 mg-325 mg tablet 1 tab PO Q4HPRN PRN moderate pain #5 tabs 05/02/24
Home Medication Changes
Pending Results: No
--- NOTE | 2024-05-02 11:20 | W.DCSUMMARY ---
Discharge Summary
Discharge Data
Date of Admission: 04/27/24
Date of Discharge: 05/02/24
-
Pending Results: No
Hospital Course
Patient is a 28yo who presented to Labor and Delivery on 04/27 for induction of labor for cholestasis. Her induction was started with Cytotec. Pitocin was then started on the morning of 04/28. The Pitocin was turned on and off throughout the day
secondary to heart decelerations. She spontaneously ruptured for clear fluid. She progressed to complete around 0115 on 04/29 and began pushing. There were decelerations noted after pushing, so scalp electrode was placed. She pushed for 2
hours with no descent of the head and late decelerations so primary section was recommended. Patient under went primary low transverse section on 04/29 for arrest of descent and non-reassuring hearts. The procedure was
uncomplicated. The estimated blood loss was 600mL. On postoperative day one, she had a headache that she said was like her normal migraines. She was given Maxalt. Preeclampsia labs were drawn and her LFTs were 105/49. Since she only had mild range
blood pressures during pushing, it was not thought to be severe preeclampsia. LFTs were repeated that evening and were stable. Her headache had resolved. Her hemoglobin was 9.1 and she was started on iron supplementation. On postoperative two, her
LFTs had decreased and she had no complaints. On postoperative day three, she was meeting all postoperative milestones and was stable for discharge home. Her EPDS was 13. She is already on Sertraline 125mg and has follow up scheduled with her
Psychiatrist. She was seen by case management. Discharge instructions and return precautions were discussed prior to discharge and all questions were answered. She was instructed to follow up in the office in 2 weeks for an incision check.
Discharge Plan
-
Patient Disposition: Home (Routine Discharge)
Discharge Diagnosis/Procedures: delivered via section, cholestasis
Condition: Good
Diet: No restrictions
Activity: No strenuous activity
Driving Restrictions: No driving for 2 weeks
Bathing Restrictions: OK to Shower
Stand Alone Forms: [facility] Hypertensive Disorders
Referrals:
Andrea Mcclendon MD [Active] - in two weeks
UNKNOWN - PT DOES,NOT KNOW [Family Provider] -
Prescriptions:
New
acetaminophen 325 mg Tablet
650 mg PO Q4HPRN PRN (Reason: mild pain) Qty: 1 0RF
oxycodone-acetaminophen 5-325 mg Tablet
1 tab PO Q4HPRN PRN (Reason: moderate pain) Qty: 5 0RF
ferrous sulfate [FeroSul] 325 mg (65 mg iron) Tablet
325 mg PO DAILY Qty: 1 0RF
ibuprofen 600 mg Tablet
600 mg PO Q6HPRN PRN (Reason: cramps) Qty: 60 0RF
Continued
sertraline 100 mg Tablet
125 mg PO DAILY
prenat.vits,darnell,ybn-uege-mzbep Tablet
1 tab PO DAILY
Discontinued
ursodiol
300 mg PO BID
Discharge Orders:
Discharge Patient (As Directed); Ordered 05/02/24
Ordered By: Parris Watters
Discharge Date and Time
Print Language: EGYPTIAN
[2024-05-02] MEDS: HYDROCORTISONE 1% CREAM 1 APPLIC TOPICAL (12:22)
[2024-05-02 16:08] LABS: ALT (SGPT) 48 U/L (0-35); AST (SGOT) 55 U/L (14-36); Albumin 2.9 g/dl (3.5-5.0); Alkaline Phosphatase 127 U/L (38-126); Blood Urea Nitrogen 11 mg/dl (7-17); Calcium 8.7 mg/dl (8.4-10.2); Carbon Dioxide 24 mmol/L (22-30); Chloride 108 mmol/L (98-107); Estimated Creatinine Clearance 125 ml/min; Glucose 87 mg/dl (70-99); Potassium 4.6 mmol/L (3.5-5.1); Sodium 138 mmol/L (135-145); Total Bilirubin 0.4 mg/dl (0.2-1.3); Total Protein 5.4 g/dl (6.3-8.2); eGFR > 60.00
[2024-05-02 16:09] LABS: Hematocrit 28.2 % (37.0-47.0); Hemoglobin 8.9 g/dL (12.0-16.0); Mean Corp Hgb Conc. 31.6 g/dL (33.0-37.0); Mean Corpuscular Hgb 24.9 pg (27.0-31.0); Mean Platelet Volume 10.1 fL (7.4-10.4); Platelet Count 213 10^3/uL (130-400); Red Blood Cell Count 3.57 10^6/uL (4.20-5.40); Red Cell Dist. Width 16.7 % (11.5-14.5); White Blood Cell Count 8.5 10^3/uL (4.8-10.8)
[2024-05-05 10:50] LABS: Syphilis/T. pallidum Ab Reflex Negative (Negative)
== END 2024-05-02 19:22 | disposition home or self-care (01) | DRG 787 ==
LOC: LDRP 19:45
PROVIDERS: Obstetrics & Gynecology; Student in an Organized Health Care Education/Training Program; ADMITTING PHYSICIAN Obstetrics & Gynecology
PROC: 3E0P7VZ Introduction of Hormone into Female Reproductive, Via Natural or Artificial Opening (ICD-10-PCS; 2024-04-27)
PROC: 10D00Z1 Extraction of Products of Conception, Low, Open Approach (ICD-10-PCS; 2024-04-27)
PROC: 3E033VJ Introduction of Other Hormone into Peripheral Vein, Percutaneous Approach (ICD-10-PCS; 2024-04-27)
DX: O62.1 Secondary uterine inertia (principal); O26.643 Intrahepatic cholestasis of pregnancy, third trimester; O76 Abnormality in fetal heart rate and rhythm complicating labor and delivery; G43.909 Migraine, unspecified, not intractable, without status migrainosus; Z37.0 Single live birth; Z3A.37 37 weeks gestation of pregnancy
CPT/HCPCS: 88307; 36415; 80053; 82803; 85025; 85027; 86780; 86850; 86900; 86901

== ENCOUNTER → 2024-12-22 15:33 | Outpatient (REF) | payer OTHER, SELFPAY | LOC: RAD 15:33 | PROVIDERS: ATTENDING PHYSICIAN Student in an Organized Health Care Education/Training Program; FAMILY PHYSICIAN Family Medicine | DX: M25.549 Pain in joints of unspecified hand (principal); G56.03 Carpal tunnel syndrome, bilateral upper limbs; M25.519 Pain in unspecified shoulder | CPT/HCPCS: 72050; 73030; 73130 ==